=== PATIENT | male | born 1975 | race Caucasian/White ===

== ENCOUNTER 2016-10-17 13:10 | Emergency (ER) | payer SELFPAY ==
[~2016-10-17] VITALS: Ht 167.6 cm; Wt 68.0 kg
[2016-10-17 13:37] VITALS: BP 134/90
== END 2016-10-17 14:04 | disposition home or self-care (01) ==
LOC: ER 13:14
DX: L03.012 Cellulitis of left finger (principal)

== ENCOUNTER 2018-06-24 07:10 | Emergency (ER) | payer MEDICAID, OTHER ==
[~2018-06-24] VITALS: Ht 167.6 cm; Wt 65.8 kg
[2018-06-24 07:31] VITALS: BP 135/95
[2018-06-24] MEDS ORDERED: LIDOCAINE 1% HCL (LOCAL ANESTH.) INJ 20ML MDV IJ ONE (08:00)
[2018-06-24] MEDS ORDERED: cefTRIAXone SOD 1,000 MG VL IM ONE (08:15)
== END 2018-06-24 08:55 | disposition home or self-care (01) ==
LOC: ER 07:10
DX: L02.416 Cutaneous abscess of left lower limb (principal)
CPT/HCPCS: 10060; 87077; 87186; 87205; 96372

== ENCOUNTER 2018-06-26 12:51 | Emergency (ER) | payer MEDICAID ==
[~2018-06-26] VITALS: Ht 167.6 cm; Wt 65.8 kg
[2018-06-26 13:06] VITALS: BP 115/81
== END 2018-06-26 18:33 | disposition left against medical advice (07) ==
LOC: ER 12:51
DX: Z48.01 Encounter for change or removal of surgical wound dressing (principal); Z53.21 Procedure and treatment not carried out due to patient leaving prior to being seen by health care provider

== ENCOUNTER 2018-06-26 23:52 | Inpatient (IN) | payer MEDICAID | END 2018-06-30 19:15 | disposition home or self-care (01) | LOC: ER 23:52 → OVERFLOW 06-27 06:22 → WEST WING 06-27 15:58 | PROC: 0Y9J00Z Drainage of Left Lower Leg with Drainage Device, Open Approach (ICD-10-PCS; principal; 2018-06-29 08:30) | DX: L03.116 Cellulitis of left lower limb (principal); R65.10 Systemic inflammatory response syndrome (SIRS) of non-infectious origin without acute organ dysfunction; R74.0 Nonspecific elevation of levels of transaminase and lactic acid dehydrogenase [LDH]; B95.62 Methicillin resistant Staphylococcus aureus infection as the cause of diseases classified elsewhere ==

== ENCOUNTER 2019-10-20 00:12 | Emergency (ER) | payer MEDICAID ==
[~2019-10-20] VITALS: Ht 167.6 cm; Wt 72.6 kg
[2019-10-20] MEDS ORDERED: KETOROLAC TROMETH 60MG/2ML VIAL IM ONE (01:15)
[2019-10-20] MEDS ORDERED: LIDOCAINE 1% HCL (LOCAL ANESTH.) INJ 20ML MDV ONE (01:46)
[2019-10-20 02:20] VITALS: BP 126/70
== END 2019-10-20 02:28 | disposition home or self-care (01) ==
LOC: ER 00:12
DX: L02.214 Cutaneous abscess of groin (principal)
CPT/HCPCS: 10060; 96372; 99283; J1885; J2001

== ENCOUNTER 2019-10-22 21:32 | Emergency (ER) | payer MEDICAID ==
[~2019-10-22] VITALS: Ht 167.6 cm; Wt 72.6 kg
[2019-10-23 01:32] VITALS: BP 131/90
== END 2019-10-23 01:40 | disposition home or self-care (01) ==
LOC: ER 21:36
DX: L02.211 Cutaneous abscess of abdominal wall (principal)